=== PATIENT | female | born 1950 | race Caucasian/White ===

== ENCOUNTER 2021-05-15 15:25 | Inpatient (IN) | payer MEDICARE, OTHER ==
[~2021-05-15] VITALS: Ht 170.2 cm; Wt 69.9 kg
[2021-05-15] MEDS ORDERED: CYMBALTA PO (16:10)
[2021-05-15] MEDS ORDERED: ESTROGEN PO (16:10)
[2021-05-15] MEDS ORDERED: PROTONIX PO (16:10)
[2021-05-15 16:31] LABS: HEMATOCRIT 38.7 % (31.2-41.9); MEAN CORPUSCULAR VOLUME 96.2 fL (75.5-95.3); PLATELET COUNT (AUTO) 319 K/uL (179-408)
[2021-05-15 16:39] LABS: CARBON DIOXIDE 27 mmol/L (21-32); CHLORIDE 103 mmol/L (98-107); CREATININE 0.7 mg/dL (0.6-1.3); GLUCOSE 99 mg/dL (74-106); POTASSIUM 3.8 mmol/L (3.5-5.1); UREA NITROGEN, BLOOD 8 mg/dL (7-18)
[2021-05-15 16:44] LABS: ALANINE AMINOTRANSFERASE 13 U/L (14-59); ALKALINE PHOSPHATASE 57 U/L (50-136); ASPARTATE AMINOTRANSFERASE 13 U/L (15-37); BILIRUBIN,DIRECT 0.1 mg/dL (0.0-0.2); BILIRUBIN,TOTAL 0.2 mg/dL (0.2-1.0); TOTAL PROTEIN, SERUM 6.9 g/dL (6.4-8.2)
[2021-05-15 16:45] LABS: ACETAMINOPHEN < 2.0 ug/mL (10-30); ETHANOL < 3 MG/DL (0-0)
[2021-05-15 16:50] LABS: *BILIRUBIN,URIN NEGATIVE (NEGATIVE); *BLOOD, URINE NEGATIVE (NEGATIVE); *CLARITY,URINE CLEAR (CLEAR); *COLOR,URINE YELLOW (YELLOW); *KETONES,URINE NEGATIVE (NEGATIVE); *UROBILINOGEN,URINE 0.2 E.U./dl (NORMAL); LEUKOCYTE ESTERASE ,URINE NEGATIVE (NEGATIVE); NITRITE, URINE NEGATIVE (NEGATIVE); UGLUCOSE NEGATIVE (NEGATIVE)
[2021-05-15 17:01] LABS: *AMPHETAMINE, URINE NEGATIVE (NEGATIVE); *CANNABINOID, URINE POSITIVE (NEGATIVE); *COCCAINE, URINE NEGATIVE (NEGATIVE); *OPIATE, URINE NEGATIVE (NEGATIVE); *PHENCYCLIDINE SCREEN,URINE NEGATIVE (NEGATIVE)
--- NOTE | 2021-05-15 17:22 | NUR ---
Pt resting in bed watching TV. NAD noted.
--- NOTE | 2021-05-15 17:41 | NUR ---
Pt is medically cleared by Dr Sevilla.
--- NOTE | 2021-05-15 17:45 | NUR ---
Placed a call to Sosa Mcgrath RN for Psych eval.
--- NOTE | 2021-05-15 19:09 | NUR ---
Sosa Mcgrath Rn, at the bedside for psych eval.
--- NOTE | 2021-05-15 19:09 | NUR ---
Report given to computer equipment repairer RNisra.
--- NOTE | 2021-05-15 19:15 | NUR ---
Report recieved from AMRN. Pt medically cleared, PETteam rep at bedside for assessment. Pt has good color and appearance, VSS, PE WNL.
--- NOTE | 2021-05-15 20:20 | NUR ---
Mental health dept called for report on pt for bed 137A. Psych nurse said they would call back in 5 min.
--- NOTE | 2021-05-15 20:30 | NUR ---
Mental health called for report. Thorough report given to psychRN Ezequiel. Was told that they are really busy at the moment and if I could delay the tranport approx 20 min. I obliged at said that it would take time to go get her bag from the car and that we would head over in about 20 min. Pt has good color and appearance, VSS, PE WNL, in good spirits aeb jovial, smiling demeanor.
--- NOTE | 2021-05-15 20:50 | NUR ---
Pt transfered to mental health via . pt has all belongings with her. Pt was very greatful and thankful of services provided by ED staff.
[2021-05-15 22:00] VITALS: BP 149/84
[2021-05-15] MEDS ORDERED: BLOOD SUGAR DIAGNOSTIC 1 EACH STRIP VI ONE (22:00)
[2021-05-15] MEDS ORDERED: ACETAMINOPHEN 325 MG TABLET PO PRN (22:00)
[2021-05-15] MEDS ORDERED: MAGNESIUM HYDROXIDE 30 ML LIQUID UDC PO PRN (22:00)
[2021-05-15] MEDS ORDERED: MAG HYDROX/AL HYDROX/SIMETH 30 ML LIQUID UDC PO PRN (22:00)
--- NOTE | 2021-05-15 22:00 | NUR ---
received to care, sittiting in bed, with legs dangling. does not initiate interactions, but responds appropriately. compliant with medications. snack and fluids left at bedside. as of now, she continues to sit in same position. no distress noted. will continue to monitor closely. Addendum: 05/16/21 at 0230 by SHARAD SALAMANCA LVN ERROR. WRONG PATIENT. PLEASE DISREGARD THIS ENTRY.
--- NOTE | 2021-05-15 22:01 | NUR ---
ERROR;WRONG PATIENT; PLEASE DISREGARD LAST ENTRY.
[2021-05-15] MEDS: TEMAZEPAM 7.5 MG CAPSULE PO PRN (23:28)
[2021-05-16] MEDS: HYDROCODONE/APAP 10-325 MG TABLET PO PRN (02:12)
[2021-05-16] MEDS: LORAZEPAM 1 MG TABLET PO PRN (02:16)
--- NOTE | 2021-05-16 06:49 | NUR ---
received last night from the emergency room on a 72 hour hold for danger to self, from home. according to the hold and corresponding paperwork, she was a walk in, c/o severe, and worsening depression. according to the process architect, she expressed SI, and stated she wanted to stab herself in the heart. upon arrival on the unit, she denied ever feeling suicidal, but stated she was very despondent and overwhelmed over her boyfriend of 27 years had recently left her. she agreed to contract for safety while on the unit. she stated that he recently found out that he had a daughter, and since coming into his life, she was pushing her out of the picture, by telling him lies, to keep him from being with her. she arrived at 2130, and had trouble sleeping. she wa sgiven restoril at 2328, and ativan at 0216. she also c/o severe fibromyalgia pain 8/10, and the doctor test automation architect was paged. PRN norco was given at 0212, and within an hour her pain was down to 4/10. she slept a few hours, and still reports good relief. currently lying in bed. no distress noted.
[2021-05-16] MEDS: PANTOPRAZOLE SODIUM 40 MG TABLET.DR PO SCH (06:55)
[2021-05-16 07:30] VITALS: BP 115/53
[2021-05-16 08:27] LABS: CREATININE 0.7 mg/dL (0.6-1.3); POTASSIUM 3.5 mmol/L (3.5-5.1)
[2021-05-16] MEDS ORDERED: ESTROGEN PO SCH (09:00)
[2021-05-16] MEDS ORDERED: ESTR0.5T4 PO (10:45)
[2021-05-16] MEDS: ESTRADIOL 1 MG TABLET PO SCH (11:53)
[2021-05-16] MEDS ORDERED: CETI-90 PO (14:38)
[2021-05-16] MEDS ORDERED: APRE30TA2 PO (14:38)
[2021-05-16] MEDS ORDERED: ACYC-108 PO (14:38)
[2021-05-16 15:05] VITALS: BP 129/80
[2021-05-16] MEDS: DULOXETINE 30 MG CAPSULE.DR PO SCH (17:14)
[2021-05-16] MEDS: CLONAZEPAM 0.5 MG TABLET PO SCH (17:15)
[2021-05-16] MEDS ORDERED: POLYVINYL ALCOHOL OPHT DROPS 15 ML BOTTLE EACHEYE PRN (19:45)
[2021-05-16] MEDS ORDERED: TRAZODONE 50 MG TABLET PO SCH (21:00)
[2021-05-16 21:24] VITALS: BP 146/87
[2021-05-16] MEDS: TEMAZEPAM 7.5 MG CAPSULE PO PRN (22:17)
[2021-05-17] MEDS: LORAZEPAM 1 MG TABLET PO PRN (02:35)
--- NOTE | 2021-05-17 02:57 | NUR ---
received to care, at start of shift, watching tv, with no interactions noted with peers. denies wanting to hurt self. states she feels better today, about her situation, and that she is reconciling with her boyfriend. PRN restoril was given at 2317, with good results, and she slept awhile. PRN ativan was given at 0235, for restlessness and anxiety. as of now, she remains awake, in bed. appears slightly calmer. will monitor closely.
[2021-05-17] MEDS: HYDROCODONE/APAP 10-325 MG TABLET PO PRN (03:21)
--- NOTE | 2021-05-17 03:30 | NUR ---
appears to be asleep.
--- NOTE | 2021-05-17 06:00 | NUR ---
slept 6 hours
[2021-05-17] MEDS: PANTOPRAZOLE SODIUM 40 MG TABLET.DR PO SCH (06:39)
[2021-05-17 07:45] VITALS: BP 140/82
[2021-05-17] MEDS: DULOXETINE 30 MG CAPSULE.DR PO SCH (09:14)
[2021-05-17] MEDS: CLONAZEPAM 0.5 MG TABLET PO SCH ×2 (09:14→17:08)
[2021-05-17] MEDS: ESTRADIOL 1 MG TABLET PO SCH (09:14)
[2021-05-17] MEDS ORDERED: CYANOCOBALAMIN 1000 MCG/ML VIAL IM ONE (09:30)
[2021-05-17] MEDS ORDERED: APREMILAST 30 MG PO SCH (09:30)
[2021-05-17] MEDS: ACYCLOVIR 200 MG CAPSULE PO SCH ×2 (10:16→21:59)
--- NOTE | 2021-05-17 10:26 | NUR ---
GPS: PT ADMINISTERED VIT B12 IM ON RIGHT HIP. PT FEELS WEAK IF SHE HAS NO SHOT. TOLERATED WELL.
--- NOTE | 2021-05-17 10:49 | NUR ---
GPS: HAD A CONVERSATION WITH PT REGARDING THE MEDICATIONS SPECIFICALLY OTEZLA 30MG THAT IS INSIDE SEPARATE PACKETS TOGETHER WITH OTHER MEDICATION THAT IT IS OKAY WITH HER TO REMOVE THE MEDICATION OTEZLA FROM OTHER FOR HER TO USE IT PHARMACY DOES NOT CARRY THAT KIND OF MEDICATION. PER PT SHE USES IT 2 X A DAY. PT ALSO SPOKE WITH DR COREA ABOUT OTEZLA AND OKAY TO GIVE IT TO PT. PT COHERENT AND AWARE AND PHARMACY NOTIFIED.
[2021-05-17] MEDS: [UNRECOGNIZED DRUG - OTHER] PO SCH ×2 (12:32→22:15)
[2021-05-17] MEDS: APREMILAST 30 MG PO SCH ×2 (12:32→22:15)
--- NOTE | 2021-05-17 12:54 | NUR ---
Initial Discharge Plan SW meet with pt and discussed treatment and discharge plan. Pt provided necessary information(see psychosocial assessment). Pt stated she did not have a DPOA and that she lacks a support system. Pt stated she needs support for her care upon discharge and would like to be discharged to home with the help of a adult care provider. SW will coordinate appropriate placement options and discuss with the treatment team.
[2021-05-17 16:08] VITALS: BP 150/80
--- NOTE | 2021-05-17 17:59 | NUR ---
GPS: PT ALERT AND VERBALLY RESPONSIVE. BOYFRIEND CAME TODAY FOR A VISIT. PT SEEN DEPRESSED OF WHAT'S HAPPENING WITH HER RELATIONSHIP WITH HER BOYFRIEND, STATING THAT HER BOYFRIEND BELIEVES MORE ON HIS DAUGHTER AND NOT HER. PT STATED THAT HE'S BREAKING UP WITH HER. PT ASKED FOR A PAIN MEDICATION TYLENOL 650MG DUE TO HEADACHE. PT EXPRESSING FRUSTRATION TO STAFF.
[2021-05-17 20:03] VITALS: BP 124/68
[2021-05-17] MEDS ORDERED: ACYCLOVIR PO SCH (21:00)
[2021-05-17] MEDS: TRAZODONE 100 MG TABLET PO SCH (21:54)
[2021-05-17] MEDS: TEMAZEPAM 7.5 MG CAPSULE PO PRN (23:45)
--- NOTE | 2021-05-18 00:30 | NUR ---
received to care, at start of shift, in room, isolative, but pleasant upon approach. denies feeling suicidal, but feels sad, as her relationship with her boyfriend of 27 years, is over. she was encouraged to come out to the activity room, interact with peers, and participate, in unit activities. extensive 1;1 interaction and emotional support was provided by this credit underwriter. she seemed to enjoy reminiscing about her career. she was compliant with her medications. PRN restoril was given at 2345, for insomnia. as of now, she appears to asleep. no distress noted. will continue to monitor closely.
--- NOTE | 2021-05-18 06:00 | NUR ---
slept 6.5 hours.
[2021-05-18] MEDS: PANTOPRAZOLE SODIUM 40 MG TABLET.DR PO SCH (06:55)
[2021-05-18 07:58] VITALS: BP 118/58
[2021-05-18] MEDS: ACYCLOVIR 200 MG CAPSULE PO SCH ×2 (08:34→20:12)
[2021-05-18] MEDS: CETIRIZINE HCL 10 MG TABLET PO SCH (08:35)
[2021-05-18] MEDS: ESTRADIOL 1 MG TABLET PO SCH (08:35)
[2021-05-18] MEDS: CLONAZEPAM 0.5 MG TABLET PO SCH ×2 (08:40→16:53)
[2021-05-18] MEDS: DULOXETINE 30 MG CAPSULE.DR PO SCH (08:41)
[2021-05-18] MEDS: APREMILAST 30 MG PO SCH ×2 (09:23→20:13)
[2021-05-18] MEDS: [UNRECOGNIZED DRUG - OTHER] PO SCH ×2 (09:23→20:13)
--- NOTE | 2021-05-18 12:46 | NUR ---
GPS: PT REQUESTED AND FILLED OUT THE FOOD CHOICES SHE LIKES TO EAT. ALSO IN ADDITION, PT DON'T LIKE PORK AND BEEF. LIKES TO HAVE CHICKEN, TURKEY AND FISH. OKAY TO HAVE LORENZO AT BREAKFAST. PT BOYFRIEND IS HERE FOR A VISIT.
[2021-05-18 16:18] VITALS: BP 124/60
--- NOTE | 2021-05-18 16:27 | NUR ---
SW SNF Referral SW Contact Bernarda at [facility] at [address] [place] [address] ([phone] & [phone]) ANGE faxed over pt's clinicals for referral such as H and P, progress notes, and medication list.
--- NOTE | 2021-05-18 18:17 | NUR ---
GPS: PT ALERT AND VERBALLY RESPONSIVE. VISIT OTHER PTS ROOM AND HAVE A GOOD CONVERSATION WITH THEM. PT SMILES BACK WHEN GREETED. PT BOYFRIEND CAME FOR A VISIT. COOPERATIVE WITH CARE. FEELS DEPRESSED WITH WHAT IS HAPPENING WITH HER RELATIONSHIP. NO SI NOTED.
--- NOTE | 2021-05-18 19:06 | NUR ---
GPS: INFORMED DR DAWSON FOR 72 HR HOLD FOR PT EXPIRING TODAY. PER MD, HE'S ON HIS WAY.
[2021-05-18 20:02] VITALS: BP 115/71
[2021-05-18] MEDS: TRAZODONE 100 MG TABLET PO SCH (20:12)
[2021-05-18] MEDS: TEMAZEPAM 7.5 MG CAPSULE PO PRN (22:08)
[2021-05-19] MEDS: PANTOPRAZOLE SODIUM 40 MG TABLET.DR PO SCH (06:29)
--- NOTE | 2021-05-19 06:39 | NUR ---
GPS: Pt.slept for 6 hrs.last night. Denies SI. Re-assured prn. Will continue to monitor.
[2021-05-19 07:30] VITALS: BP 123/66
[2021-05-19] MEDS: ACYCLOVIR 200 MG CAPSULE PO SCH (08:19)
[2021-05-19] MEDS: ESTRADIOL 1 MG TABLET PO SCH (08:19)
[2021-05-19] MEDS: CLONAZEPAM 0.5 MG TABLET PO SCH (08:19)
[2021-05-19] MEDS: CETIRIZINE HCL 10 MG TABLET PO SCH (08:20)
[2021-05-19] MEDS: DULOXETINE 30 MG CAPSULE.DR PO SCH (08:20)
[2021-05-19] MEDS: APREMILAST 30 MG PO SCH (08:23)
[2021-05-19] MEDS: [UNRECOGNIZED DRUG - OTHER] PO SCH (08:23)
--- NOTE | 2021-05-19 09:54 | NUR ---
Discharge Note Patient will be discharged Home [id number] [address] ([phone]). Patient is refusing placement at [facility] though this was offered to her. Patient will go home via her own vehicle which is parked in the parking lot. Patient is aware and agreeable with discharge plans. Patient presents with appropriate mood and congruent affect. Patient is alert and oriented x3 (place, situation, self). Patient denies suicidal or homicidal ideation. Patient will follow-up with [facility] ([phone]). Patient was provided resources of mental health referral and caregiving resources.
--- NOTE | 2021-05-19 11:54 | NUR ---
PT LEFT UNIT ACCOMPANIED BY [facility] TO HER PRIVATE VEHICLE PARKED IN HOSPITAL PARKING STRUCTURE. PT IS AOX4, ABLE TO MAKE ALL NEEDS KNOWN. NO AGGRESSIVE OR COMBATIVE BEHAVIOR. DENIES SUICIDAL AND HOMICIDAL IDEATIONS. CALM AND PLEASANT. DENIES PAIN OR DISCOMFORT. LEFT WITH ALL NOTED BELONGINGS, VALUABLES, AND PAPERWORK. V/S STABLE. IN NO ACUTE DISTRESS.
== END 2021-05-19 11:50 | disposition home or self-care (01) | DRG 881 ==
LOC: ER 15:25 → GPS 21:02
PROVIDERS: ADMIT Psychiatry & Neurology Psychiatry; ATTEND Internal Medicine
DX: F32.9 Major depressive disorder, single episode, unspecified (principal); R45.851 Suicidal ideations; K21.9 Gastro-esophageal reflux disease without esophagitis; F41.9 Anxiety disorder, unspecified; G47.9 Sleep disorder, unspecified; Z78.1 Physical restraint status
CPT/HCPCS: 36415; 71045; 85025; 93005; A4663; G0480; J3420